=== PATIENT | female | born 1950 | race Asian ===

== ENCOUNTER → 2019-01-19 | Outpatient (CLI) | payer OTHER, MEDICAID | END | disposition home or self-care (01) | LOC: SRD 12:24 | DX: I70.0 Atherosclerosis of aorta (principal) | CPT/HCPCS: 71046-TC ==

== ENCOUNTER 2019-07-13 12:42 | Outpatient (CLI) | payer OTHER, MEDICAID | END 2019-07-13 21:25 | disposition home or self-care (01) | LOC: SRD 12:42 | PROVIDERS: ATTEND Internal Medicine | DX: R05 Cough (principal); I51.7 Cardiomegaly | CPT/HCPCS: 71046-TC ==